=== PATIENT | male | born 1965 | race Caucasian/White ===

== ENCOUNTER 2017-10-26 07:23 | Emergency (ER) | payer OTHER ==
[~2017-10-26] VITALS: Ht 175.3 cm; Wt 88.5 kg
[2017-10-26 07:23] VITALS: BP_SYST 158
[2017-10-26] MEDS ORDERED: MORPHINE 4 MG/ML INJ. SYRINGE ONE (07:44)
[2017-10-26] MEDS ORDERED: NITROGLYCERIN 1 INCH (GM) OINT. ONE (07:45)
[2017-10-26] MEDS ORDERED: ASPIRIN 325 MG TABLET PO ONE (07:45)
[2017-10-26 07:53] VITALS: BP_SYST 135
[2017-10-26 08:04] LABS: CALCIUM 9.3 mg/dL (8.4-11.0); CREATININE 0.98 mg/dL (0.55-1.30); POTASSIUM 3.6 mmol/L (3.5-5.1)
[2017-10-26 08:07] LABS: PROTHROMBIN TIME 10.4 SECS (9.5-12.5)
[2017-10-26 08:09] LABS: ALBUMIN 3.8 g/dL (3.4-4.8); TOTAL BILIRUBIN 0.9 mg/dL (0.0-1.0)
[2017-10-26 08:11] LABS: BASOPHILS % (AUTO) 0.1 % (0.0-2.0); EOSINOPHILS # (AUTO) 0.1 K/uL (0.0-0.4); EOSINOPHILS % (AUTO) 0.7 % (0.0-4.0); HEMATOCRIT 49.5 % (36-54); HEMOGLOBIN 16.3 g/dL (14.0-18.0); LYMPHOCYTES # (AUTO) 0.5 K/uL (1.0-5.5); LYMPHOCYTES % (AUTO) 4.1 % (20.5-51.5); MEAN CORPUSCULAR HEMOGLOBIN 31 pg (27-31); MEAN CORPUSCULAR HGB CONC 33 % (32-36); MEAN CORPUSCULAR VOLUME 93 fL (79.0-98.0); MONOCYTES # (AUTO) 0.6 K/uL (0.0-1.0); MONOCYTES % (AUTO) 5.4 % (1.7-9.3); NEUTROPHILS # (AUTO) 10.2 K/uL (1.8-7.7); NEUTROPHILS % (AUTO) 89.7 % (40.0-70.0); PLATELET COUNT (AUTO) 184 K/uL (130-430); RED BLOOD CELL COUNT(AUTO) 5.34 MIL/uL (4.2-6.2); RED CELL DISTRIBUTION WIDTH 11.9 % (9.0-15.0); WHITE BLOOD COUNT (AUTO) 11.4 K/uL (4.8-10.8)
[2017-10-26] MEDS ORDERED: MORPHINE 4 MG/ML INJ. SYRINGE IVP ONE (23:30)
[2017-10-26] MEDS ORDERED: NITROGLYCERIN 1 INCH (GM) OINT. TP ONE (23:30)
== END 2017-10-26 07:53 | disposition short-term general hospital (02) ==
LOC: SED 07:23
DX: I21.9 Acute myocardial infarction, unspecified (principal); E11.9 Type 2 diabetes mellitus without complications; I10 Essential (primary) hypertension; F17.210 Nicotine dependence, cigarettes, uncomplicated
CPT/HCPCS: 36415; 71045; 80053; 83880; 84484; 85025; 85379; 85610; 85730; 93005; 96374; 99291; J2270

== ENCOUNTER 2021-11-21 19:06 | Inpatient (IN) | payer OTHER, SELFPAY ==
[~2021-11-21] VITALS: Ht 177.8 cm; Wt 82.2 kg
[2021-11-21 19:06] VITALS: BP_SYST 100
[2021-11-21] MEDS ORDERED: FOLIC ACID 1 MG, THIAMINE HCL 100 MG, MAGNESIUM SULFATE 1 GM, MVI 10 ML in NACL 0.9% 1,... IV ONE (20:00)
[2021-11-21] MEDS ORDERED: NACL 0.9% 1,000 ML IV ONE (20:00)
[2021-11-21] MEDS ORDERED: FOLIC ACID 5 MG/ML VIAL IV ONE (20:01)
[2021-11-21] MEDS ORDERED: MVI 10 ML VIAL IV ONE (20:01)
[2021-11-21] MEDS ORDERED: THIAMINE HCL 100 MG/ML VIAL ONE (20:01)
[2021-11-21] MEDS ORDERED: MAGNESIUM SULFATE 1 GM/2 ML VIAL ONE (20:01)
[2021-11-21] MEDS ORDERED: ALBUMIN HUMAN 25% 50 ML IV ONE ×2 (20:04→20:15)
[2021-11-21 20:18] LABS: HEMATOCRIT 24.4 % (36-54); HEMOGLOBIN 8.4 g/dL (14.0-18.0); MEAN CORPUSCULAR HEMOGLOBIN 36 pg (27-31); MEAN CORPUSCULAR HGB CONC 35 % (32-36); MEAN CORPUSCULAR VOLUME 103 fL (79.0-98.0); PLATELET COUNT (AUTO) 136 K/uL (130-430); RED BLOOD CELL COUNT(AUTO) 2.36 MIL/uL (4.2-6.2); RED CELL DISTRIBUTION WIDTH 14.7 % (9.0-15.0); WHITE BLOOD COUNT (AUTO) 14.5 K/uL (4.8-10.8)
[2021-11-21 20:24] LABS: ANION GAP 15 (5-15); CALCIUM 7.9 mg/dL (8.4-11.0); CHLORIDE 96 mmol/L (98-107); CREATININE 3.56 mg/dL (0.55-1.30); GLUCOSE 113 mg/dL (70-99); SODIUM SERUM 129 mmol/L (136-145); UREA NITROGEN, BLOOD 56 mg/dL (8-21)
[2021-11-21 20:28] LABS: GFR AFRICAN AMERICAN 23 mL/min (>90); POTASSIUM 2.3 mmol/L (3.5-5.1)
[2021-11-21 20:34] LABS: INR 1.8 (0.80-1.20); PROTHROMBIN TIME 17.8 SECS (9.5-12.5)
[2021-11-21 20:35] LABS: ALANINE AMINOTRANSFERASE 31 U/L (12-78); ASPARTATE AMINOTRANSFERASE 51 U/L (10-37); TOTAL BILIRUBIN 4.1 mg/dL (0.0-1.0)
[2021-11-21 20:36] LABS: ACETAMINOPHEN < 1 ug/mL (1-30); ALBUMIN 1.9 g/dL (3.4-4.8)
[2021-11-21 20:37] LABS: ALCOHOL, BLOOD < 3 mg/dL (<10)
[2021-11-21 20:43] LABS: ACETONE, SERUM NEGATIVE (NEGATIVE)
[2021-11-21] MEDS ORDERED: OCTREOTIDE ACETATE 500 MCG in NS 247.5 ML IV ONE (21:00)
[2021-11-21] MEDS ORDERED: PANTOPRAZOLE SODIUM 80 MG in NS 100 ML IV ONE (21:00)
[2021-11-21] MEDS ORDERED: PANTOPRAZOLE SODIUM 80 MG in NS 100 ML IVP ONE (21:00)
[2021-11-21] MEDS ORDERED: PANTOPRAZOLE SODIUM 40 MG/VIAL (PROTONIX) ONE ×2 (21:09)
[2021-11-21] MEDS ORDERED: PANTOPRAZOLE SODIUM 40 MG/VIAL (PROTONIX) IVP ONE (21:30)
[2021-11-21] MEDS ORDERED: PIPERACILLIN/TAZO 3.375 GM in NS 50 ML IV ONE (22:00)
[2021-11-21] MEDS ORDERED: HYDROCORTISONE SOD SUCC 100 MG/2 ML VIAL IVP ONE (22:30)
[2021-11-21] MEDS ORDERED: KCL 40 mEq in 100 mL (PREMIX) 100 ML IV ONE (22:45)
[2021-11-21] MEDS ORDERED: PIPERACILLIN/TAZOBACTAM 3.375 GM/VIAL (ZOSYN) IV ONE ×2 (22:46→23:03)
[2021-11-21] MEDS ORDERED: NOREPINEPHRINE BITARTRATE 4 MG in NS 246 ML IV ONE (23:00)
[2021-11-21] MEDS ORDERED: NACL 0.9% 2,000 ML IV ONE (23:00)
[2021-11-21] MEDS ORDERED: MAGNESIUM SULFATE 50 ML IV ONE (23:30)
[2021-11-21] MEDS ORDERED: VANCOMYCIN HCL 1 GM/NS PREMIX 250 ML IV ONE (23:30)
[2021-11-21] MEDS ORDERED: NOREPINEPHRINE 4 MG/4 ML VIAL IV ONE (23:34)
[2021-11-22] VITALS (41 sets, daily range): BP systolic 86–154
[2021-11-22] MEDS: D5NS 1,000 ML IV SCH ×3 (00:49→20:48)
[2021-11-22] MEDS ORDERED: NOREPINEPHRINE 4 MG/4 ML VIAL IV ONE ×3 (00:53→03:27)
[2021-11-22] MEDS ORDERED: KCL 20 mEq in 100 mL (PREMIX) 200 ML IV ONE ×2 (01:07→01:08)
[2021-11-22] MEDS ORDERED: VANCOMYCIN HCL 1000 MG/VIAL IV ONE (01:13)
[2021-11-22 02:38] LABS: BARBITURATE, URINE NEGATIVE (NEG <=200); BENZODIAZEPINE, URINE NEGATIVE (NEG <=150); CANNABINOID, URINE NEGATIVE (NEG <=50); COCAINE, URINE NEGATIVE (NEG <=150); METHAMPHETAMINES SCREEN,URINE NEGATIVE (NEG <=500); OPIATE, URINE NEGATIVE (NEG <=100); PHENCYCLIDINE SCREEN,URINE NEGATIVE (NEG <=25); UR TRICYCLIC ANTIDEPRESSANTS NEGATIVE (NEG <=300); URINE AMPHETAMINE NEGATIVE (NEG <=500); URINE METHADONE NEGATIVE (NEG <=200); URINE OXYCODONE SCREEN NEGATIVE (NEG <=100); URINE PROPOXYPHENE SCREEN NEGATIVE (NEG <=300)
[2021-11-22] MEDS ORDERED: NOREPINEPHRINE BITARTRATE 4 MG in NS 246 ML IV PRN (03:00)
[2021-11-22] MEDS: NOREPINEPHRINE 4 MG/4 ML VIAL IV ONE ×2 (03:00→03:25)
[2021-11-22] MEDS: NOREPINEPHRINE BITARTRATE 16 MG in NS 234 ML IV PRN ×2 (04:09→10:48)
[2021-11-22 06:23] LABS: BILIRUBIN,URINE NEGATIVE (NEGATIVE); BLOOD, URINE NEGATIVE (NEGATIVE); CLARITY/URINE CLEAR (CLEAR); COLOR,URINE YELLOW (YELLOW); GLUCOSE,URINE TRACE (NEGATIVE); KETONES,URINE NEGATIVE (NEGATIVE); LEUKOCYTE ESTERASE ,URINE NEGATIVE (NEGATIVE); NITRITE, URINE NEGATIVE (NEGATIVE); PROTEIN URINE NEGATIVE (NEGATIVE); UROBILINOGEN,URINE 0.2 (0.2-1.0)
[2021-11-22 06:42] LABS: BASOPHILS % (AUTO) 0.1 % (0.0-2.0); HEMATOCRIT 28.6 % (36-54); HEMOGLOBIN 9.5 g/dL (14.0-18.0); LYMPHOCYTES # (AUTO) 0.1 K/uL (1.0-5.5); LYMPHOCYTES % (AUTO) 0.5 % (20.5-51.5); MEAN CORPUSCULAR HEMOGLOBIN 34 pg (27-31); MEAN CORPUSCULAR HGB CONC 33 % (32-36); MEAN CORPUSCULAR VOLUME 103 fL (79.0-98.0); MONOCYTES # (AUTO) 0.7 K/uL (0.0-1.0); MONOCYTES % (AUTO) 3.9 % (1.7-9.3); NEUTROPHILS # (AUTO) 18.2 K/uL (1.8-7.7); NEUTROPHILS % (AUTO) 95.5 % (40.0-70.0); PLATELET COUNT (AUTO) 146 K/uL (130-430); RED BLOOD CELL COUNT(AUTO) 2.77 MIL/uL (4.2-6.2); RED CELL DISTRIBUTION WIDTH 16.3 % (9.0-15.0); WHITE BLOOD COUNT (AUTO) 19.1 K/uL (4.8-10.8)
[2021-11-22] MEDS ORDERED: ALBUMIN HUMAN 5% 500 ML IV ONE (06:45)
[2021-11-22 07:00] LABS: ALBUMIN 1.9 g/dL (3.4-4.8); CALCIUM 7.2 mg/dL (8.4-11.0); CREATININE 2.72 mg/dL (0.55-1.30); TOTAL BILIRUBIN 4.8 mg/dL (0.0-1.0)
[2021-11-22 07:34] LABS: POTASSIUM 2.7 mmol/L (3.5-5.1)
[2021-11-22 07:35] LABS: PROTHROMBIN TIME 19.3 SECS (9.5-12.5)
[2021-11-22] MEDS ORDERED: PHYTONADIONE 10 MG/ML AMP SUBCUT ONE (07:45)
[2021-11-22] MEDS ORDERED: ACETAMINOPHEN 325 MG TABLET PO PRN (08:00)
[2021-11-22] MEDS ORDERED: MUPIROCIN 2% TOPICAL OINTMENT 22 GM NS PRN (08:00)
[2021-11-22] MEDS ORDERED: MAGNESIUM SULFATE 50 ML IV PRN ×2 (08:00)
[2021-11-22] MEDS ORDERED: MORPHINE 2 MG/ML INJ. SYRINGE IVP PRN ×2 (08:00)
[2021-11-22] MEDS ORDERED: ONDANSETRON HCL 4 MG/2 ML VIAL IVP PRN (08:00)
[2021-11-22] MEDS: LACTULOSE 20 GM/30 ML UDC PO SCH ×2 (09:00→20:48)
[2021-11-22 09:36] LABS: ALBUMIN 1.9 g/dL (3.4-4.8)
[2021-11-22] MEDS: cefTRIAXone 1 GM IVPB PREMIX 50 ML IV SCH (10:13)
[2021-11-22] MEDS: PANTOPRAZOLE SODIUM 40 MG/VIAL (PROTONIX) IVP SCH ×2 (10:14→20:48)
[2021-11-22] MEDS: LORazepam 2 MG/ML VIAL IVP PRN (20:51)
[2021-11-23] VITALS (23 sets, daily range): BP systolic 88–137
[2021-11-23] MEDS: NOREPINEPHRINE BITARTRATE 16 MG in NS 234 ML IV PRN (05:21)
[2021-11-23 07:52] LABS: BASOPHILS % (AUTO) 0.1 % (0.0-2.0); EOSINOPHILS % (AUTO) 0.2 % (0.0-4.0); HEMATOCRIT 25.5 % (36-54); HEMOGLOBIN 8.6 g/dL (14.0-18.0); LYMPHOCYTES # (AUTO) 0.3 K/uL (1.0-5.5); LYMPHOCYTES % (AUTO) 1.7 % (20.5-51.5); MEAN CORPUSCULAR HEMOGLOBIN 35 pg (27-31); MEAN CORPUSCULAR HGB CONC 34 % (32-36); MEAN CORPUSCULAR VOLUME 102 fL (79.0-98.0); MONOCYTES # (AUTO) 1.1 K/uL (0.0-1.0); MONOCYTES % (AUTO) 6.4 % (1.7-9.3); NEUTROPHILS # (AUTO) 15.9 K/uL (1.8-7.7); NEUTROPHILS % (AUTO) 91.6 % (40.0-70.0); PLATELET COUNT (AUTO) 123 K/uL (130-430); RED BLOOD CELL COUNT(AUTO) 2.49 MIL/uL (4.2-6.2); WHITE BLOOD COUNT (AUTO) 17.4 K/uL (4.8-10.8)
[2021-11-23 07:57] LABS: CREATININE 2.06 mg/dL (0.55-1.30); PHOSPHORUS 3.7 mg/dL (2.7-4.5); VANCOMYCIN,RANDOM 8.7 ug/mL
[2021-11-23 08:29] LABS: POTASSIUM 2.5 mmol/L (3.5-5.1)
[2021-11-23 08:30] LABS: CALCIUM 6.5 mg/dL (8.4-11.0)
[2021-11-23] MEDS: PANTOPRAZOLE SODIUM 40 MG/VIAL (PROTONIX) IVP SCH ×2 (09:17→21:39)
[2021-11-23] MEDS: LACTULOSE 20 GM/30 ML UDC PO SCH ×2 (09:18→21:39)
[2021-11-23] MEDS: POTASSIUM CHLORIDE 20 MEQ TAB.PRT.SR PO PRN (09:20)
[2021-11-23] MEDS: DOCUSATE SODIUM 100 MG CAPSULE PO PRN (09:21)
[2021-11-23] MEDS: cefTRIAXone 1 GM IVPB PREMIX 50 ML IV SCH (09:41)
[2021-11-23] MEDS: D5NS 1,000 ML IV SCH (10:11)
[2021-11-23] MEDS ORDERED: KCL 40mEq in D5/0.45NS 1000 mL 1,000 ML IV SCH (12:30)
[2021-11-23] MEDS ORDERED: VANCOMYCIN HCL 1,250 MG in NS 250 ML IV SCH (14:00)
[2021-11-23] MEDS ORDERED: KCL 20 mEq in 100 mL (PREMIX) 200 ML IV ONE (15:00)
[2021-11-23] MEDS ORDERED: KCL 40 mEq in 100 mL (PREMIX) 100 ML IV ONE (21:15)
[2021-11-23] MEDS: LORazepam 2 MG/ML VIAL IVP PRN (22:55)
[2021-11-24] VITALS (29 sets, daily range): BP systolic 96–170
[2021-11-24] MEDS ORDERED: ETOMIDATE 20 MG/ 10 ML VIAL (AMIDATE) ONE
[2021-11-24] MEDS ORDERED: ROCURONIUM BROMIDE 10 MG/ML (ZEMURON) ONE
[2021-11-24 00:42] LABS: INR 1.6 (0.80-1.20); PROTHROMBIN TIME 15.7 SECS (9.5-12.5)
[2021-11-24] MEDS ORDERED: LEVOFLOXACIN IN DEXTROSE 5 % 100 ML IV ONE (00:48)
[2021-11-24] MEDS: LEVOFLOXACIN IN DEXTROSE 5 % 100 ML IV SCH ×2 (01:14→22:46)
[2021-11-24] MEDS: D5NS 1,000 ML IV SCH (01:17)
[2021-11-24 06:55] LABS: BASOPHILS % (AUTO) 0.2 % (0.0-2.0); EOSINOPHILS # (AUTO) 0.1 K/uL (0.0-0.4); EOSINOPHILS % (AUTO) 0.5 % (0.0-4.0); HEMATOCRIT 25.9 % (36-54); HEMOGLOBIN 8.6 g/dL (14.0-18.0); LYMPHOCYTES # (AUTO) 0.4 K/uL (1.0-5.5); LYMPHOCYTES % (AUTO) 2.1 % (20.5-51.5); MEAN CORPUSCULAR HEMOGLOBIN 34 pg (27-31); MEAN CORPUSCULAR HGB CONC 33 % (32-36); MEAN CORPUSCULAR VOLUME 104 fL (79.0-98.0); MONOCYTES # (AUTO) 1.1 K/uL (0.0-1.0); MONOCYTES % (AUTO) 6.6 % (1.7-9.3); NEUTROPHILS # (AUTO) 15.4 K/uL (1.8-7.7); NEUTROPHILS % (AUTO) 90.6 % (40.0-70.0); PLATELET COUNT (AUTO) 86 K/uL (130-430); RED CELL DISTRIBUTION WIDTH 18.3 % (9.0-15.0)
[2021-11-24] MEDS: cefTRIAXone 1 GM IVPB PREMIX 50 ML IV SCH (07:27)
[2021-11-24 08:18] LABS: CALCIUM 7.2 mg/dL (8.4-11.0); CREATININE 1.46 mg/dL (0.55-1.30)
[2021-11-24] MEDS: PANTOPRAZOLE SODIUM 40 MG/VIAL (PROTONIX) IVP SCH ×2 (09:28→20:37)
[2021-11-24] MEDS: DOCUSATE SODIUM 100 MG CAPSULE PO PRN (09:28)
[2021-11-24] MEDS: LACTULOSE 20 GM/30 ML UDC PO SCH ×2 (09:28→20:37)
[2021-11-24] MEDS: PROPOFOL DRIP 100 ML IV PRN ×2 (09:31→19:13)
[2021-11-24 09:46] LABS: POTASSIUM 3.2 mmol/L (3.5-5.1)
[2021-11-24] MEDS: POTASSIUM CHLORIDE 20 MEQ TAB.PRT.SR PO PRN (10:33)
[2021-11-24] MEDS: LORazepam 2 MG/ML VIAL IVP PRN (12:02)
[2021-11-24] MEDS: MEROPENEM 500 MG IVPB PREMIX 50 ML IV SCH ×2 (14:42→21:15)
[2021-11-25] VITALS (45 sets, daily range): BP systolic 90–162
[2021-11-25] MEDS: PROPOFOL DRIP 100 ML IV PRN ×2 (04:47→14:10)
[2021-11-25] MEDS: MEROPENEM 500 MG IVPB PREMIX 50 ML IV SCH ×3 (05:18→21:40)
[2021-11-25 06:30] LABS: EOSINOPHILS # (AUTO) 0.1 K/uL (0.0-0.4); EOSINOPHILS % (AUTO) 0.8 % (0.0-4.0); HEMATOCRIT 25.4 % (36-54); HEMOGLOBIN 8.4 g/dL (14.0-18.0); LYMPHOCYTES # (AUTO) 0.5 K/uL (1.0-5.5); MEAN CORPUSCULAR HEMOGLOBIN 34 pg (27-31); MEAN CORPUSCULAR HGB CONC 33 % (32-36); MEAN CORPUSCULAR VOLUME 104 fL (79.0-98.0); MONOCYTES # (AUTO) 1.2 K/uL (0.0-1.0); MONOCYTES % (AUTO) 7.5 % (1.7-9.3); NEUTROPHILS # (AUTO) 13.8 K/uL (1.8-7.7); NEUTROPHILS % (AUTO) 88.7 % (40.0-70.0); PLATELET COUNT (AUTO) 78 K/uL (130-430); RED BLOOD CELL COUNT(AUTO) 2.46 MIL/uL (4.2-6.2); RED CELL DISTRIBUTION WIDTH 17.8 % (9.0-15.0); WHITE BLOOD COUNT (AUTO) 15.5 K/uL (4.8-10.8)
[2021-11-25 08:28] LABS: CALCIUM 7.2 mg/dL (8.4-11.0); CREATININE 1.27 mg/dL (0.55-1.30)
[2021-11-25] MEDS: LACTULOSE 20 GM/30 ML UDC PO SCH ×3 (09:42→21:38)
[2021-11-25] MEDS: PANTOPRAZOLE SODIUM 40 MG/VIAL (PROTONIX) IVP SCH ×2 (09:43→21:38)
[2021-11-25] MEDS: POTASSIUM CHLORIDE 20 MEQ TAB.PRT.SR PO PRN (10:37)
[2021-11-25] MEDS ORDERED: MENTHOL/ZINC OXIDE 113 GM OINT. TP PRN (18:00)
[2021-11-25] MEDS: BALSAM PERU/CASTOR OIL 56.7 GM OINT...G. TP SCH (21:39)
[2021-11-25] MEDS: LEVOFLOXACIN IN DEXTROSE 5 % 100 ML IV SCH (23:11)
[2021-11-26] VITALS (43 sets, daily range): BP systolic 85–130
[2021-11-26] MEDS: PROPOFOL DRIP 100 ML IV PRN ×3 (01:19→19:04)
[2021-11-26] MEDS: MEROPENEM 500 MG IVPB PREMIX 50 ML IV SCH ×3 (06:16→21:18)
[2021-11-26 06:41] LABS: ALBUMIN 1.7 g/dL (3.4-4.8); CALCIUM 7.9 mg/dL (8.4-11.0); CREATININE 1.14 mg/dL (0.55-1.30); POTASSIUM 3.3 mmol/L (3.5-5.1); TOTAL BILIRUBIN 2.4 mg/dL (0.0-1.0)
[2021-11-26 08:06] LABS: BASOPHILS % (AUTO) 0.1 % (0.0-2.0); EOSINOPHILS # (AUTO) 0.1 K/uL (0.0-0.4); EOSINOPHILS % (AUTO) 0.3 % (0.0-4.0); HEMOGLOBIN 8.2 g/dL (14.0-18.0); LYMPHOCYTES # (AUTO) 0.4 K/uL (1.0-5.5); LYMPHOCYTES % (AUTO) 2.7 % (20.5-51.5); MEAN CORPUSCULAR HEMOGLOBIN 34 pg (27-31); MEAN CORPUSCULAR HGB CONC 33 % (32-36); MEAN CORPUSCULAR VOLUME 105 fL (79.0-98.0); MONOCYTES # (AUTO) 1.1 K/uL (0.0-1.0); MONOCYTES % (AUTO) 6.6 % (1.7-9.3); NEUTROPHILS # (AUTO) 14.6 K/uL (1.8-7.7); NEUTROPHILS % (AUTO) 90.3 % (40.0-70.0); PLATELET COUNT (AUTO) 75 K/uL (130-430); RED BLOOD CELL COUNT(AUTO) 2.39 MIL/uL (4.2-6.2); RED CELL DISTRIBUTION WIDTH 18.3 % (9.0-15.0); WHITE BLOOD COUNT (AUTO) 16.2 K/uL (4.8-10.8)
[2021-11-26] MEDS: LACTULOSE 20 GM/30 ML UDC PO SCH ×3 (09:51→21:17)
[2021-11-26] MEDS: BALSAM PERU/CASTOR OIL 56.7 GM OINT...G. TP SCH (09:52)
[2021-11-26] MEDS: PANTOPRAZOLE SODIUM 40 MG/VIAL (PROTONIX) IVP SCH ×2 (09:52→21:18)
[2021-11-26] MEDS: D5W 1,000 ML IV SCH ×3 (09:54→21:23)
[2021-11-26] MEDS: RIFAXIMIN 200 MG TABLET PO SCH ×2 (17:05→21:17)
[2021-11-26] MEDS: LEVOFLOXACIN IN DEXTROSE 5 % 100 ML IV SCH (21:19)
[2021-11-27] VITALS (44 sets, daily range): BP systolic 90–119
[2021-11-27] MEDS ORDERED: NOREPINEPHRINE 4 MG/4 ML VIAL IV ONE (04:37)
[2021-11-27 06:57] LABS: BASOPHILS % (AUTO) 0.1 % (0.0-2.0); EOSINOPHILS # (AUTO) 0.1 K/uL (0.0-0.4); EOSINOPHILS % (AUTO) 0.6 % (0.0-4.0); HEMOGLOBIN 8.1 g/dL (14.0-18.0); LYMPHOCYTES # (AUTO) 0.5 K/uL (1.0-5.5); LYMPHOCYTES % (AUTO) 2.5 % (20.5-51.5); MEAN CORPUSCULAR HEMOGLOBIN 34 pg (27-31); MEAN CORPUSCULAR HGB CONC 33 % (32-36); MEAN CORPUSCULAR VOLUME 105 fL (79.0-98.0); MONOCYTES % (AUTO) 5.7 % (1.7-9.3); NEUTROPHILS # (AUTO) 16.7 K/uL (1.8-7.7); NEUTROPHILS % (AUTO) 91.1 % (40.0-70.0); PLATELET COUNT (AUTO) 86 K/uL (130-430); RED BLOOD CELL COUNT(AUTO) 2.39 MIL/uL (4.2-6.2); RED CELL DISTRIBUTION WIDTH 18.5 % (9.0-15.0); WHITE BLOOD COUNT (AUTO) 18.4 K/uL (4.8-10.8)
[2021-11-27] MEDS: MEROPENEM 500 MG IVPB PREMIX 50 ML IV SCH (07:14)
[2021-11-27 07:38] LABS: INR 1.5 (0.80-1.20); PROTHROMBIN TIME 14.6 SECS (9.5-12.5)
[2021-11-27 08:36] LABS: CALCIUM 7.3 mg/dL (8.4-11.0); CREATININE 1.06 mg/dL (0.55-1.30); POTASSIUM 3.1 mmol/L (3.5-5.1)
[2021-11-27] MEDS: LACTULOSE 20 GM/30 ML UDC PO SCH ×3 (09:00→21:00)
[2021-11-27] MEDS: RIFAXIMIN 200 MG TABLET PO SCH ×3 (09:00→21:00)
[2021-11-27] MEDS: PANTOPRAZOLE SODIUM 40 MG/VIAL (PROTONIX) IVP SCH ×2 (12:26→21:00)
[2021-11-27] MEDS: POTASSIUM CHLORIDE 20 MEQ TAB.PRT.SR PO PRN (12:26)
[2021-11-27] MEDS: BALSAM PERU/CASTOR OIL 56.7 GM OINT...G. TP SCH (12:27)
[2021-11-27] MEDS: PROPOFOL DRIP 100 ML IV PRN (12:29)
[2021-11-27] MEDS: metroNIDAZOLE 500 mg/NS 100 ML IV SCH ×2 (15:08→22:32)
[2021-11-27] MEDS: D5W 1,000 ML IV SCH (15:08)
[2021-11-27] MEDS ORDERED: CEFEPIME 1 GM in D5W 50 ML IV SCH (21:00)
== END 2021-11-27 23:45 | disposition short-term general hospital (02) | DRG 871 ==
LOC: SED 19:06 → SIC 22:34
PROVIDERS: ADMIT General Practice; ATTEND General Practice
PROC: 30233K1 Transfusion of Nonautologous Frozen Plasma into Peripheral Vein, Percutaneous Approach (ICD-10-PCS; principal; 2021-11-22)
PROC: 30233N1 Transfusion of Nonautologous Red Blood Cells into Peripheral Vein, Percutaneous Approach (ICD-10-PCS; 2021-11-22)
PROC: 02HV33Z Insertion of Infusion Device into Superior Vena Cava, Percutaneous Approach (ICD-10-PCS; 2021-11-22)
PROC: B548ZZA Ultrasonography of Superior Vena Cava, Guidance (ICD-10-PCS; 2021-11-22)
PROC: 02H633Z Insertion of Infusion Device into Right Atrium, Percutaneous Approach (ICD-10-PCS; 2021-11-24)
PROC: B548ZZA Ultrasonography of Superior Vena Cava, Guidance (ICD-10-PCS; 2021-11-24)
PROC: 0BH17EZ Insertion of Endotracheal Airway into Trachea, Via Natural or Artificial Opening (ICD-10-PCS; 2021-11-24)
PROC: 5A1945Z Respiratory Ventilation, 24-96 Consecutive Hours (ICD-10-PCS; 2021-11-24)
PROC: 0DB78ZX Excision of Stomach, Pylorus, Via Natural or Artificial Opening Endoscopic, Diagnostic (ICD-10-PCS; 2021-11-27)
DX: A41.50 Gram-negative sepsis, unspecified (principal); E43 Unspecified severe protein-calorie malnutrition; G93.41 Metabolic encephalopathy; J96.01 Acute respiratory failure with hypoxia; N17.0 Acute kidney failure with tubular necrosis; R65.21 Severe sepsis with septic shock; J18.9 Pneumonia, unspecified organism; D68.9 Coagulation defect, unspecified; E87.1 Hypo-osmolality and hyponatremia; F10.239 Alcohol dependence with withdrawal, unspecified; K76.6 Portal hypertension; K92.2 Gastrointestinal hemorrhage, unspecified; N39.0 Urinary tract infection, site not specified; D63.8 Anemia in other chronic diseases classified elsewhere; E11.9 Type 2 diabetes mellitus without complications; E87.6 Hypokalemia; I10 Essential (primary) hypertension; J44.9 Chronic obstructive pulmonary disease, unspecified; K31.89 Other diseases of stomach and duodenum; K70.30 Alcoholic cirrhosis of liver without ascites; Z20.822 Contact with and (suspected) exposure to COVID-19; K72.90 Hepatic failure, unspecified without coma; Z78.1 Physical restraint status; Z87.891 Personal history of nicotine dependence; Z98.84 Bariatric surgery status; Z68.26 Body mass index [BMI] 26.0-26.9, adult
CPT/HCPCS: 36415; 36430; 36600; 70450-TC; 71045; 76376; 76700-TC; 80048; 80053; 80202; 80307; 81003; 82009; 82040; 82140; 82150; 82272; 82803-TC; 82962; 83036; 83051; 83605; 83735; 84100; 84132; 84484; 85014; 85025; 85048; 85049-TC; 85610-TC; 85730-TC; 86886; 86900; 86901; 86920; 87040; 87070-TC; 87081; 87205-TC; 93306; 94002; 94003; 94640; 96374; 96375; 99285; C9113; G0480; G0481; G0482; J0692; J0696; J1720; J1956; J2060; J2185; J2543; J2704; J3370; J3411; J3430; J3475; J3480; J3490; J7050; J7060; P9021; P9041; P9046; P9059